=== PATIENT | female | born 2000 | race Caucasian/White ===

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

== ENCOUNTER 2020-05-17 23:09 | Inpatient (IN) ==
[2020-05-18 00:05] LABS: Urine Appearance Cloudy; Urine Bilirubin Negative (Negative); Urine Blood Negative (Negative); Urine Color Yellow; Urine Glucose Negative (Negative); Urine Ketones Negative (Negative); Urine Nitrite Negative (Negative); Urine Protein 1+(30 mg/dL) (Negative); Urine Specific Gravity 1.025 (1.010-1.030); Urine Urobilinogen Negative (Negative)
[2020-05-18 00:09] LABS: Urine Bacteria 2+ (Absent); Urine Red Blood Cell Trace(0-2/hpf) (Absent); Urine Squamous Epithelial Cell Present (Absent); Urine White Blood Cell Trace(0-5/hpf) (Absent)
[2020-05-18 00:18] LABS: ABS Basophils 0.1 10^3/ul (0-0.2); ABS Eosinophils 0.1 10^3/ul (0-0.6); ABS Lymphocytes 1.9 10^3/ul (1.0-4.8); ABS Monocytes 0.9 10^3/ul (0-0.8); ABS Neutrophils 6.4 10^3/ul (1.5-7.7); Hematocrit 37 % (35-47); Hemoglobin 12.7 g/dL (12.0-16.0); Mean Corpuscular HGB Conc 34 g/dL (31-36); Mean Corpuscular Hemoglobin 30 pg (27-31); Mean Corpuscular Volume 89 fL (80-97); Mean Platelet Volume 8.2 fL (7.4-10.4); Platelet Count 302 10^3/uL (150-450); Red Blood Count 4.22 10^6 /uL (3.70-4.87); Red Cell Distribution Width 12 % (10-15); White Blood Count 9.3 10^3/uL (3.5-10.8)
[2020-05-18 00:34] LABS: Acetaminophen < 15 mcg/mL; Alcohol, S < 10 mg/dL (<10); Salicylate < 2.50 mg/dL (<30)
[2020-05-18 00:35] LABS: ALT 10 U/L (7-52); AST 14 U/L (13-39); Albumin 4.5 g/dL (3.2-5.2); Alkaline Phosphatase 53 U/L (34-104); Anion Gap 5 mmol/L (2-11); BUN/Creatinine Ratio 25.5 (8-20); Blood Urea Nitrogen 14 mg/dL (6-24); CO2 Carbon Dioxide 28 mmol/L (22-32); Calcium 9.3 mg/dL (8.6-10.3); Chloride 107 mmol/L (101-111); EGFR African American 172.3 (>60); EGFR Non-African American 142.4 (>60); Globulin 2.2 g/dL (2-4); Glucose 106 mg/dL (70-100); Sodium 140 mmol/L (135-145); Total Protein 6.7 g/dL (6.4-8.9)
[2020-05-18 00:41] LABS: Urine Benzodiazepine Screen None Detected (None Detect); Urine Cannabinoids Screen None Detected (None Detect); Urine Opiates Screen None Detected (None Detect)
[2020-05-18 00:51] LABS: TSH Ultra Thyroid Stim Horm 1.19 mcIU/mL (0.34-5.60)
[2020-05-18] MEDS ORDERED: Al Hydrox/Mg Hydrox/Simet LIQ 30 ML UDC PO PRN (10:34)
[2020-05-18 11:02] LABS: HCG Pregnancy < 0.60 mIU/mL
[2020-05-19] MEDS: Vitamin THERAPEUTIC TAB PO SCH (14:12)
[2020-05-20] MEDS: Vitamin THERAPEUTIC TAB PO SCH (08:58)
[2020-05-21] MEDS ORDERED: Influenza VAC *QUAD* 2020-21* 0.5 ML SYRINGE IM ONE (09:00)
[2020-05-21] MEDS: Vitamin THERAPEUTIC TAB PO SCH (09:11)
[2020-05-22 09:01] VITALS: BP 106/60
[2020-05-22] MEDS: Vitamin THERAPEUTIC TAB PO SCH (09:16)
== END 2020-05-22 12:00 | disposition home or self-care (01) | DRG 753 ==
LOC: ED 23:09 → BSU 05-18 10:34 → ED 05-18 15:01
PROVIDERS: ADMIT Psychiatry & Neurology Psychiatry; ATTEND Psychiatry & Neurology Psychiatry

== ENCOUNTER 2023-12-23 07:43 | Inpatient (IN) ==
[2023-12-23] MEDS ORDERED: Lidocaine 1% VIAL 10 MG/ML 30 ML VIAL INJ PRN (09:37)
[2023-12-23 10:11] LABS: ABS Eosinophils 0.1 10^3/uL (0.0-0.5); ABS Lymphocytes 1.8 10^3/uL (1.0-4.8); ABS Monocytes 0.9 10^3/uL (0.0-0.9); ABS Neutrophils 6.1 10^3/uL (1.5-7.6); Eosinophil % 0.8 %; Hematocrit 31.5 % (35-45); Lymphocyte % 19.7 %; Mean Corpuscular Hemoglobin 30.5 pg (27-33); Mean Corpuscular Hgb Conc 35.1 g/dL (31-36); Mean Platelet Volume 10.3 fL (7.5-11.2); Nucleated Red Blood Cells % 0.1 %/100WBC (0.0-0.8); Platelet Count 209 10^3/uL (150-450); Red Blood Count 3.61 10^6/uL (3.63-4.92); Red Cell Distribution Width 13.3 % (12-17); White Blood Count 8.9 10^3/uL (3.8-11.8)
[2023-12-23 10:30] LABS: Urine Benzodiazepine Screen None Detected (None Detect); Urine Cannabinoids Screen None Detected (None Detect); Urine Opiates Screen None Detected (None Detect)
[2023-12-23] MEDS: Oxytocin in LR 20,000 MILLI.UNIT/1,000 ML BAG IV SCH (10:39)
[2023-12-23] MEDS: Lactated Ringers 1000 ml BAG 1,000 ML IV SCH (10:39)
[2023-12-23] MEDS: Buffered Lidocaine 1% SYRIN 1 ml INTRADERM ONE (11:54)
[2023-12-23] MEDS: Morphine 10 MG/ML VIAL (1 ml) IV ONE (18:21)
[2023-12-23] MEDS: Prochlorperazine 5 mg/ml 2 ml VIAL (10 mg) IV PRN (18:22)
[2023-12-23] MEDS ORDERED: OBEPIDURAL (200 ML) 200 ML EPIDURAL ONE (19:27)
[2023-12-23] MEDS ORDERED: Lidocaine 1.5% EPI 1:200,000 30 ML SDV INJ ONE (19:27)
[2023-12-23] MEDS: OBEPIDURAL (200 ML) 200 ML EPIDURAL SCH (20:10)
[2023-12-23] MEDS: Lactated Ringers 1000 ml BAG 1,000 ML IV ONE (20:12)
[2023-12-23] MEDS: Phenylephrine 40 mcg/mL 10mL (400mcg) SYRINGE ONE (20:15)
[2023-12-23] MEDS: Phenylephrine 40 mcg/mL 10mL (400mcg) SYRINGE IV PUSH PRN (20:25)
[2023-12-23] MEDS ORDERED: Sodium Citrate/Citric Acid LIQ 15 ML UDC PO PRN (20:26)
[2023-12-23] MEDS ORDERED: Phenylephrine 40 mcg/mL 10mL (400mcg) SYRINGE IV PUSH PRN (20:26)
[2023-12-23 21:27] LABS: Urine Appearance Turbid; Urine Bilirubin Negative (Negative); Urine Blood Negative (Negative); Urine Color Yellow; Urine Glucose Negative (Negative); Urine Ketones 3+ (Negative); Urine Nitrite Negative (Negative); Urine Protein 1+ (>=30 mg/dL) (Negative); Urine Specific Gravity 1.023 (1.002-1.030); Urine Urobilinogen Negative (Negative)
[2023-12-23 21:30] LABS: Urine Bacteria Absent /HPF (Absent); Urine Red Blood Cell Trace(0-2/hpf) /HPF (0-Trace); Urine Squamous Epithelial Cell Present /HPF (Absent); Urine White Blood Cell 1+(6-10/hpf) /HPF (0-Trace)
[2023-12-24] MEDS: Ondansetron 4 mg VIAL 2 MG/ML 2 ml VIAL IV PRN
[2023-12-24] MEDS ORDERED: Glycerin ADULT 2.4 gm SUPP PR PRN (04:12)
[2023-12-24] MEDS ORDERED: Lactated Ringers 1000 ml BAG 1,000 ML IV SCH (05:00)
[2023-12-24] MEDS: Dibucaine 1% OINT 28.35 GM TUBE PR PRN (06:41)
[2023-12-24] MEDS: Witch Hazel PAD JAR TOPICAL PRN (06:41)
[2023-12-24] MEDS: Lactated Ringers 1000 ml BAG 1,000 ML IV ONE (07:22)
[2023-12-24] MEDS: Lactated Ringers 1000 ml BAG 1,000 ML IV SCH (07:22)
[2023-12-24] MEDS: Oxytocin in LR 20,000 MILLI.UNIT/1,000 ML BAG IV SCH (07:23)
[2023-12-24] MEDS: Phenylephrine 40 mcg/mL 10mL (400mcg) SYRINGE ONE (15:29)
[2023-12-25 06:43] LABS: ABS Basophils 0.1 10^3/uL (0.0-0.1); ABS Eosinophils 0.2 10^3/uL (0.0-0.5); ABS Lymphocytes 2.1 10^3/uL (1.0-4.8); ABS Monocytes 0.9 10^3/uL (0.0-0.9); ABS Nucleated RBC 0.01 10^3/ul; Eosinophil % 2.1 %; Hematocrit 30.2 % (35-45); Hemoglobin 10.6 g/dL (11.5-14.3); Lymphocyte % 22.6 %; Mean Corpuscular Hemoglobin 30.8 pg (27-33); Mean Corpuscular Volume 87.8 fL (80-97); Mean Platelet Volume 9.6 fL (7.5-11.2); Nucleated Red Blood Cells % 0.1 %/100WBC (0.0-0.8); Platelet Count 192 10^3/uL (150-450); Red Blood Count 3.44 10^6/uL (3.63-4.92); Red Cell Distribution Width 13.3 % (12-17); White Blood Count 9.2 10^3/uL (3.8-11.8)
[2023-12-25 07:52] VITALS: BP 127/70
== END 2023-12-25 12:45 | disposition home or self-care (01) | DRG 560 ==
LOC: MCHOBOUT 07:43 → MCHOB 09:20
PROVIDERS: ADMIT Midwife; ATTEND Midwife